=== PATIENT | female | born 1995 | race African-American/Black ===

== ENCOUNTER 2022-09-12 15:04 | Emergency (ER) | payer MEDICAID, SELFPAY ==
[2022-09-12 15:19] VITALS: BP 147/85; PULSE 80; RESP 18; TEMP 37.3; O2SAT 99
--- NOTE | 2022-09-12 15:23 | ECG_ITS ---
Measurements Intervals [place] Rate: 108 P: 31 AR: 169 QRS: 21 QRSD: 70 T: -7 QT: 310 QTc: 417 Interpretive Statements SINUS TACHYCARDIA NONSPECIFIC T-WAVE ABNORMALITY ABNORMAL ECG NO PREVIOUS ECG AVAILABLE FOR COMPARISON Electronically Signed On 09-13-2022 13:36:13 [employer]PERATIONS ENGINEER by Sigifredo Simons M.D.
[2022-09-12] MEDS: LORazepam (*CRX) 0.5 MG TABLET PO (17:54)
[2022-09-12 18:00] LABS: Basophils Percent Auto 0.3 % (0.2-1.2); Eosinophils Absolute Auto 0.1 K/mm3 (0-0.3); Eosinophils Percent Auto 0.8 % (0-4.4); Hematocrit 40.3 % (37.0-47.0); Immature Granulocyte Absolute 0.01 K/mm3 (0.00-0.031); Immature Granulocyte Percent A 0.2 % (0-0.5); Lymphocytes Absolute Auto 1.35 K/mm3 (0.9-3.2); Lymphocytes Percent Auto 20.5 % (18.3-44.2); Mean Corpuscular HGB Conc 32.3 g/dl (32-36); Mean Corpuscular Volume 83.6 fl (80-100); Mean Platelet Volume 12.4 fl (7.4-10.4); Monocytes Absolute Auto 0.4 K/mm3 (0.1-0.6); Monocytes Percent Auto 5.5 % (2.6-8.5); Neutrophils Absolute Auto 4.8 K/mm3 (1.3-6.7); Neutrophils Percent Auto 72.7 % (45.5-73.1); Platelet Count Result 255 k/mm3 (150-375); Red Blood Count 4.82 M/mm3 (4.2-5.4); Red Cell Distribution Width 14.2 % (11.5-14.5); White Blood Count 6.6 K/mm3 (4.5-10.0)
[2022-09-12 18:01] VITALS: BP 139/72; PULSE 100; RESP 20; O2SAT 99
[2022-09-12 18:11] LABS: Alanine Aminotransferase 23 U/L (6-35); Albumin Level 4.5 g/dL (3.5-5.1); Alkaline Phosphatase 92 U/L (38-126); Anion Gap 7 mmol/L (8-16); Aspartate Amino Transferase 22 U/L (14-36); Bilirubin,Total 0.3 mg/dL (0.2-1.3); Blood Urea Nitrogen 14 mg/dL (7-17); Carbon Dioxide 29 mmol/L (22-30); Chloride 103 mmol/L (98-107); Estimated CRCL calculation 132 ml/min; Estimated Glomerular Filt Rate > 60; Glucose 111 mg/dL (65-110); Potassium 4.2 mmol/L (3.4-5.0); Sodium 139 mmol/L (137-145)
--- NOTE | 2022-09-12 18:16 | ED.ANXIETY ---
HPI - Anxiety General Chief Complaint: Anxiety Stated Complaint: MULTI C/O Time Seen by Provider: 09/12/22 17:32 History of Present Illness HPI narrative: Patient is a 26-year-old female who is previously healthy here for evaluation of anxiety earlier today. Patient states that she was doing presentation at work remotely when she started noticing some discomfort in her right arm that she describes as tingling sensation. She states that this sensation made her very anxious and she started to feel short of breath. States that she walked outside to calm herself down and called an ambulance because she developed some tightness in her chest. Right now she states that she feels anxious and her arm is still tingling. States that she went to [facility] last month with similar symptoms and had a full work-up, was discharged home without any remarkable findings and was told to follow-up with a neurologist. She has an MRI scheduled next week. No visual changes, headaches, nausea, vomiting, fevers, chills, weakness in the lower limb. Related Data Allergies Allergy/AdvReac Type Severity Reaction Status Date / Time Sulfa (Sulfonamide Allergy Itching Verified 09/12/22 17:38 Antibiotics) zolpidem [From Ambien] Allergy Itching Verified 09/12/22 17:38 Review of Systems Review of Systems: Gen: Reports anxiety Eyes: Denies eye pain or visual change ENT: Denies congestion Respiratory: Denies shortness of breath or cough CV: Denies chest pain or palpitations GI: Denies abdominal pain nausea, emesis or diarrhea denies burning, urgency, frequency or hematuria Musculoskeletal: Denies back pain or muscle pain Neuro: Denies numbness, tingling, weakness or focal weakness Skin: Denies rash Except as documented, all other systems reviewed and negative Exam Narrative: APPEARANCE: Well appearing, no pain in distress, well-nourished. Head: Normocephalic and atraumatic. EYES: PERRLA/EOMI, conjunctivae clear NOSE: No nasal drainage EARS: External ear normal in appearance THROAT: Oropharynx is clear. Mucous membranes are moist. NECK: Supple. No adenopathy, no masses. RESPIRATORY: Airway patent, respirations nonlabored. Clear to auscultation bilaterally, no rales, rhonchi, wheezing. CARDIOVASCULAR: Regular rate and rhythm without murmurs, rubs, or gallops. ABDOMINAL: Normoactive bowel sounds. Soft, nontender, nondistended. No rebound tenderness or guarding. MUSCULOSKELETAL: Bounding pulses in the right upper extremity. No weakness noted. Extremities are warm and well-perfused. Moves all extremities well. No edema. NEURO: No neurologic deficits. Normal speech. No focal neurologic deficits. SKIN: Skin is warm and dry. No rashes. PSYCHIATRIC: Normal affect/mood.. Course Vital Signs Vital signs: Vital Signs Temperature 99.2 F 09/12/22 15:19 Pulse Rate 80 09/12/22 15:19 Respiratory Rate 18 09/12/22 15:19 Blood Pressure 147/85 H 09/12/22 15:19 Pulse Oximetry 99 09/12/22 15:19 Oxygen Delivery Room Air 09/12/22 15:19 Temperature 99.2 F 09/12/22 15:19 Pulse Rate 104 H 09/12/22 18:51 Respiratory Rate 18 09/12/22 18:51 Blood Pressure 146/76 H 09/12/22 18:51 Pulse Oximetry 100 09/12/22 18:51 Oxygen Delivery Room Air 09/12/22 15:19 MDM - Anxiety MDM Narrative Medical decision making narrative: 26-year-old female here for evaluation of symptoms that she attributes to anxiety over the past several hours including right arm tingling and numbness that a chest tightness earlier today. She is nontoxic in appearance and has normal vital signs, heart and lungs are clear to auscultation throughout. Basic labs are unremarkable. EKG and troponin are nonischemic and her presentation is certainly not consistent with ischemic type pain. History not consistent with pancreatitis, no abdominal tenderness on exam. Considered but feel unlikely acute PE given that patient's main symptom is right arm tingling and anxiety. Patient jonah
[2022-09-12 18:22] LABS: Troponin I < 0.012 ng/mL (0.000-0.034)
[2022-09-12 18:51] VITALS: BP 146/76; PULSE 104; RESP 18; O2SAT 100
== END 2022-09-12 18:52 | disposition home or self-care (01) ==
PROVIDERS: Emergency Provider Physician Assistant
DX: F41.9 Anxiety disorder, unspecified (principal); R00.0 Tachycardia, unspecified; R94.31 Abnormal electrocardiogram [ECG] [EKG]
CPT/HCPCS: 36415; 80053; 84484; 85025; 93005; 99284; A9270